=== PATIENT | male | born 2000 | race Hispanic/Latino ===

== ENCOUNTER 2023-09-27 21:59 | Emergency (ER) | payer OTHER ==
[2023-09-27] MEDS ORDERED: ONDANSETRON 4 MG/2 ML VIAL ONE (22:13)
[2023-09-27] MEDS ORDERED: KETOROLAC 30 MG/ML INJ ONE (22:13)
[2023-09-27] MEDS ORDERED: NA CHLORIDE 0.9% 1,000 ML ONE (22:14)
[2023-09-27] MEDS ORDERED: FENTANYL CITR 100 MCG/2 ML ONE (22:14)
--- NOTE | 2023-09-27 22:36 | RAD REPORT ---
EXAM DESCRIPTION: RAD - Tib Fib Left - 09/27/2023 10:25 pm CLINICAL HISTORY: PAIN COMPARISON: <Comparisons> FINDINGS: Mildly displaced trimalleolar fracture is present of the ankle. Moderate surrounding soft tissue swelling. No additional fracture seen.
--- NOTE | 2023-09-27 22:38 | RAD REPORT ---
EXAM DESCRIPTION: RAD - Foot Left 3 View - 09/27/2023 10:26 pm CLINICAL HISTORY: PAIN COMPARISON: <Comparisons> FINDINGS: Trimalleolar fracture of the ankle again seen. Moderate soft tissue swelling. No additiona l foot fracture or dislocation.
--- NOTE | 2023-09-27 23:03 | ER ---
Nurse's Notes [facility] Name: Frankie Aguirre Age: 23 yrs Sex: Male : 2000 Arrival Date: 09/27/2023 Time: 21:59 Bed 20 Private MD: Diagnosis: Displaced trimalleolar fracture of left lower leg, initial encounter for closed fracture;Contusion of unspecified part of head-right periorbital;Paresthesia of skin;Fracture of nasal bones Presentation: 09/26 22:00 Chief complaint: Patient states: Patient presents to the ER with 3 correctional mt4 officers. Patient states left lower foot pain and limping since yesterday due to fall. States pain 7/10, tender to touch, observed swelling and bruising to injured site- interior latera left l foot. Denies PMH, denies any N/V/D. Denies taking any pain meds before arrival. Coronavirus screen: At this time, the client does not indicate any symptoms associated with coronavirus-19. Ebola Screen: No symptoms or risks identified at this time. Initial Sepsis Screen: Does the patient meet any 2 criteria? No. Patient's initial sepsis screen is negative. Does the patient have a suspected source of infection? No. Patient's initial sepsis screen is negative. Risk Assessment: Do you want to hurt yourself or someone else? Patient reports no desire to harm self or others. Note patient observed to have bruising to right eye, patient states "I fell down". Onset of symptoms was September 27, 2023. 22:00 Method Of Arrival: Stretcher mt4 22:00 Acuity: JEROME 3 mt4 Triage Assessment: 22:31 General: Appears in no apparent distress. comfortable, Behavior is cooperative. Pain: mt4 Complains of pain in left foot and left leg Pain does not radiate. Pain currently is 7 out of 10 on a pain scale. Quality of pain is described as aching, throbbing, Pain began gradually, 1 day ago. Is continuous. Neuro: Level of Consciousness is awake, alert, obeys commands, Oriented to person, place, time, situation, Hearing Care Practitioner are Speech is normal, Facial symmetry appears normal. Cardiovascular: Capillary refill < 3 seconds. Respiratory: Airway is patent. GI: Abdomen is non-distended, Abd is soft and non tender. : Denies burning with urination. Musculoskeletal: Capillary refill < 3 seconds, Range of motion: intact in all extremities, Swelling present in left foot Tenderness present in left foot Reports pain in left foot. Injury Description: Bruise sustained to left foot. Historical: - Allergies: 22:31 No Known Allergies; mt4 - Infectious Disease History:: Denies. - Social history:: Smoking status: unknown The patient lives [place] [employer] . - Family history:: not pertinent. - Coronavirus screen:: The patient has NOT traveled to [place] in the past 14 days. - Ebola Screening: : No symptoms or risks identified at this time. Screenin:54 [facility] ED Fall Risk Assessment (Adult) History of falling in the last 3 months, mt4 including since admission Yes- single mechanical fall (1 pt) Confusion or Disorientation No (0 pts) Intoxicated or Sedated No (0 pts) Impaired Gait Yes (1 pt) Mobility Assist Device Used No (0 pt) Altered Elimination No (0 pt) Score/Fall Risk Level 3 or more points = High Risk. Abuse screen: Denies injuries from another. Nutritional screening: No deficits noted. Tuberculosis screening: No symptoms or risk factors identified. Exposure risk/Travel Screening: None identified. Assessment: 22:54 General: Appears in no apparent distress. Behavior is calm, cooperative, appropriate mt4 for age. Pain: Complains of pain in left foot Pain does not radiate. Pain currently is 7 out of 10 on a pain scale. Quality of pain is described as aching, tender, throbbing, Is continuous, Alleviated by medications. Neuro: Level of Consciousness is awake, alert, obeys commands, Oriented to person, place, time, situation, Speech is normal, Facial symmetry appears normal. Cardiovascular: Capillary refill < 3 seconds. Respiratory: Airway is patent. GI: Abdomen is non-distended. :. 09/27 00:30 Reassessment: Nurse to nurse provided over the phone with Christianne from [facility], and mt4 patient updated on transfer. 00:53 Reassessment: Patient is alert, oriented x 3, equal unlabored respirations, skin mt4 warm/dry/pink. General: Appears in no apparent distress. comfortable, Behavior is calm, cooperative, appropriate for age. Pain: Complains of pain in left foot. Neuro: Level of Consciousness is awake, alert, obeys commands, Oriented to person, place, time, situation, Speech is normal, Facial symmetry appears normal. Cardiovascular: Capillary refill < 3 seconds. Respiratory: Airway is patent. Musculoskeletal: Range of motion: pain to left lower extremity Reports. Injury Description: Bruise sustained to face and left foot. Vital Signs: 09/26 22:00 BP 127 / 69; Pulse 88; Resp 16 S; Temp 97.1(O); Pulse Ox 97% on R/A; Pain 7/10; mt4 22:51 BP 127 / 62; Pulse 76; Resp 16 S; Temp 98.1(O); Pulse Ox 96% on R/A; Pain 7/10; mt4 09/27 00:05 Weight 77.11 kg; rv1 00:53 BP 121 / 66; Pulse 72; Resp 16 S; Temp 98.6(O); Pulse Ox 98% on R/A; Pain 5/10; mt4 09/26 22:00 Pain Scale: Adult mt4 22:51 Pain Scale: Adult mt4 00:53 Pain Scale: Adult mt4 [place] Coma Score: 09/26 22:54 Eye Response: spontaneous(4). Motor Response: obeys commands(6). Verbal Response: mt4 oriented(5). Total: 15. 09/27 00:53 Eye Response: spontaneous(4). Motor Response: obeys commands(6). Verbal Response: mt4 oriented(5). Total: 15. Trauma Score (Adult): 09/26 22:54 Eye Response: spontaneous(1); Verbal Response: oriented(1); Motor Response: obeys mt4 commands(2); Systolic BP: > 89 mm Hg(4); Respiratory Rate: 10 to 29 per min(4); [place] Score: 15; Trauma Score: 12 ED Course: 22:01 Patient arrived in ED. vc1 22:01 Michael Mims MD is Attending Physician. nic 22:10 Orlando Sullivan, YEN is Primary Nurse. mt4 22:27 Tib Fib Left XRAY In Process Unspecified. EDMS 22:27 Foot Left 3 View XRAY In Process Unspecified. EDMS 22:31 Triage completed. mt4 22:31 Arm band placed on right wrist. Patient placed on pulse oximetry. EKG completed in mt4 triage. Results shown to MD. 22:45 CT Head C Spine In Process Unspecified. EDMS 22:45 CT Facial Bones W/O Con In Process Unspecified. EDMS 23:00 No apparent distress. Awaiting lab results, Awaiting for x-ray. mt4 23:00 Patient has correct armband on for positive identification. Bed in low position. Call mt4 light in reach. Side rails up X 1. Adult w/ patient. Client placed on continuous cardiac and pulse oximetry monitoring. NIBP monitoring applied. Pulse ox on. Lights dimmed. Patient is placed in psych hold. 23:00 No provider procedures requiring assistance completed. Inserted saline lock: 20 gauge mt4 in right antecubital area, using aseptic technique. Patient maintains SpO2 saturation greater than 95% on room air. 09/27 00:58 Provided Education on: transfer education and splint education . mt4 00:58 Patient transferred, IV remains in place. Patient maintains SpO2 saturation greater mt4 than 95% on room air. left posterior splint applied to left lower extremity. Administered Medications: 09/26 22:53 Drug: Ketorolac IVP 30 mg IVP once Route: IVP; Site: right antecubital; mt4 23:54 Follow up: Response: No adverse reaction mt4 22:53 Drug: fentaNYL (PF) IVP 50 mcg IVP once Route: IVP; Site: right antecubital; mt4 23:53 Follow up: Response: No adverse reaction mt4 22:53 Drug: Ondansetron IVP 4 mg IVP once; over 2 minutes Route: IVP; Site: right antecubital;mt4 23:53 Follow up: Response: No adverse reaction mt4 22:54 Drug: NS 0.9% IV 1000 ml IV at 1 bolus Per protocol; 1000 mL bolus Route: IV; Rate: 1 mt4 bolus; Site: right antecubital; 23:54 Follow up: Response: No adverse reaction; IV Status: Completed infusion; IV Intake: mt4 1000ml Medication: 22:54 VIS not applicable for this client. mt4 Intake: 23:54 IV: 1000ml; Total: 1000ml. mt4 Outcome: 23:02 ER care complete, transfer ordered by MD. lucero 09/27 00:58 Transferred by ground EMS to [facility], Transfer form mt4 completed. Condition: stable Discharge instructions given to family, Instructed on transfer education, splint education Demonstrated understanding of instructions, splint care, 01:16 Patient left the ED. mt4 Signatures: Dispatcher [employer] Michael Lin MD MD cha Calcote, Vanessa, RN RN 1 Patsy Leo 1 Orlando Sullivan, RN RN mt4
--- NOTE | 2023-09-27 23:03 | EDPHYS ---
Physician Documentation [facility] Name: Frankie Aguirre Age: 23 yrs Sex: Male : 2000 Arrival Date: 09/27/2023 Time: 21:59 Bed 20 Private MD: ED Physician Michael Mims HPI: 09/26 22:50 This 23 yrs old Male presents to ER via Stretcher with complaints of left nic ankle and face trauma sp fall. 22:50 The patient presents with decreased range of motion, pain, swelling, tenderness. The nic complaints affect the lateral aspect of left calf, left lateral ankle, left Achilles, medial aspect of left calf, left [place] and anterior aspect of left ankle. Context: resulted from a direct blow, the patient falling, the patient is not able to bear weight. Modifying factors: The symptoms are alleviated by elevating leg, remaining still, the symptoms are aggravated by movement, weight bearing. Associated signs and symptoms: The patient has no apparent associated signs or symptoms. The patient presents with decreased range of motion, pain, swelling, tenderness. The complaints affect the left ankle, left lateral ankle, left heel, left medial ankle and anterior aspect of left ankle. Context: The problem was sustained prision. Severity of symptoms: At their worst the symptoms were moderate, in the emergency department the symptoms are unchanged. Historical: - Allergies: 22:31 No Known Allergies; mt4 - Infectious Disease History:: Denies. - Social history:: Smoking status: unknown The patient lives [place] [employer] . - Family history:: not pertinent. - Coronavirus screen:: The patient has NOT traveled to [place] in the past 14 days. - Ebola Screening: : No symptoms or risks identified at this time. ROS: 22:50 Constitutional: Negative for fever, chills, and weight loss, Eyes: Negative for injury, nic pain, redness, and discharge, Neck: Negative for injury, pain, and swelling, Cardiovascular: Negative for chest pain, palpitations, and edema, Respiratory: Negative for shortness of breath, cough, wheezing, and pleuritic chest pain, Abdomen/GI: Negative for abdominal pain, nausea, vomiting, diarrhea, and constipation, Back: Negative for injury and pain, : Negative for injury, bleeding, discharge, and swelling, Skin: Negative for injury, rash, and discoloration, Neuro: Negative for headache, weakness, numbness, tingling, and seizure, Psych: Negative for depression, anxiety, suicide ideation, homicidal ideation, and hallucinations, Allergy/Immunology: Negative for hives, rash, and allergies, Endocrine: Negative for neck swelling, polydipsia, polyuria, polyphagia, and marked weight changes, Hematologic/Lymphatic: Negative for swollen nodes, abnormal bleeding, and unusual bruising, 22:50 ENT: Positive for right eye ecchymosis, Exam: 22:50 Constitutional: This is a well developed, well nourished patient who is awake, alert, nic and in no acute distress. Eyes: Pupils equal round and reactive to light, extra-ocular motions intact. Lids and lashes normal. Conjunctiva and sclera are non-icteric and not injected. Cornea within normal limits. Periorbital areas with no swelling, redness, or edema. ENT: Nares patent. No nasal discharge, no septal abnormalities noted. Tympanic membranes are normal and external auditory canals are clear. Oropharynx with no redness, swelling, or masses, exudates, or evidence of obstruction, uvula midline. Mucous membranes moist. Neck: Trachea midline, no thyromegaly or masses palpated, and no cervical lymphadenopathy. Supple, full range of motion without nuchal rigidity, or vertebral point tenderness. No Meningismus. Chest/axilla: Normal chest wall appearance and motion. Nontender with no deformity. No lesions are appreciated. Cardiovascular: Regular rate and rhythm with a normal S1 and S2. No gallops, murmurs, or rubs. Normal PMI, no JVD. No pulse deficits. Respiratory: Lungs have equal breath sounds bilaterally, clear to auscultation and percussion. No rales, rhonchi or wheezes noted. No increased work of breathing, no retractions or nasal flaring. Abdomen/GI: Soft, non-tender, with normal bowel sounds. No distension or tympany. No guarding or rebound. No evidence of tenderness throughout. Back: No spinal tenderness. No costovertebral tenderness. Full range of motion. Male : Normal genitalia with no discharge or lesions. Skin: Warm, dry with normal turgor. Normal color with no rashes, no lesions, and no evidence of cellulitis. Neuro: Awake and alert, GCS 15, oriented to person, place, time, and situation. Cranial nerves II-XII grossly intact. Motor strength 5/5 in all extremities. Sensory grossly intact. Cerebellar exam normal. Normal gait. Psych: Awake, alert, with orientation to person, place and time. Behavior, mood, and affect are within normal limits. 22:50 Head/face: Noted is swelling, tenderness, that is mild, of the right eye, 22:50 Musculoskeletal/extremity: Extremities: grossly normal except: noted in the left lateral ankle, left medial ankle and anterior aspect of left ankle: decreased ROM, pain, swelling, tenderness, Vital Signs: 22:00 BP 127 / 69; Pulse 88; Resp 16 S; Temp 97.1(O); Pulse Ox 97% on R/A; Pain 7/10; mt4 22:51 BP 127 / 62; Pulse 76; Resp 16 S; Temp 98.1(O); Pulse Ox 96% on R/A; Pain 7/10; mt4 09/27 00:05 Weight 77.11 kg; rv1 00:53 BP 121 / 66; Pulse 72; Resp 16 S; Temp 98.6(O); Pulse Ox 98% on R/A; Pain 5/10; mt4 09/26 22:00 Pain Scale: Adult mt4 22:51 Pain Scale: Adult mt4 00:53 Pain Scale: Adult mt4 [place] Coma Score: 09/26 22:54 Eye Response: spontaneous(4). Motor Response: obeys commands(6). Verbal Response: mt4 oriented(5). Total: 15. 09/27 00:53 Eye Response: spontaneous(4). Motor Response: obeys commands(6). Verbal Response: mt4 oriented(5). Total: 15. Trauma Score (Adult): 09/26 22:54 Eye Response: spontaneous(1); Verbal Response: oriented(1); Motor Response: obeys mt4 commands(2); Systolic BP: > 89 mm Hg(4); Respiratory Rate: 10 to 29 per min(4); Sam Score: 15; Trauma Score: 12 MDM: 22:05 Patient medically screened. [facility] 22:57 Differential diagnosis: dislocation, closed fracture, contusion, tendonitis, sprain. [facility] Data reviewed: vital signs, nurses notes, lab test result(s), radiologic studies, plain films. Consideration of Admission/Observation Escalation of care including admission/observation considered. I considered the following discharge prescriptions or medication management in the emergency department Medications were administered in the Emergency Department. See MAR. Independent interpretation of the following test(s) in the Emergency Department X-Ray: My interpretation is left foot ankle, tib fib. CT Scan: My interpretation is ct head , face c spine. Test considered but Not performed: CT: no ct ankle. Historians other than the Patient: guards, pt. Care significantly affected by the following chronic conditions: none. Counseling: I had a detailed discussion with the patient and/or guardian regarding the historical points, exam findings, and any diagnostic results supporting the discharge/admit diagnosis, lab results, radiology results, the need to transfer to another facility, for higher level of care, [facility] does not immediately have the required specialist. 09/26 22:08 Order name: CBC with Diff; Complete Time: 01:04 [facility] 09/26 22:08 Order name: Comprehensive Metabolic Panel; Complete Time: 01:04 [facility] 09/26 22:08 Order name: Tib Fib Left XRAY; Complete Time: 22:48 [facility] 09/26 22:08 Order name: Foot Left 3 View XRAY; Complete Time: 22:48 [facility] 09/26 22:08 Order name: CT Head C Spine [facility] 09/26 22:08 Order name: CT Facial Bones W/O Con [facility] 09/26 22:08 Order name: Ice pack; Complete Time: 22:21 [facility] 09/26 22:48 Order name: Splint - Ankle: Posterior; Complete Time: 01:17 [facility] Administered Medications: 22:53 Drug: Ketorolac IVP 30 mg IVP once Route: IVP; Site: right antecubital; mt4 23:54 Follow up: Response: No adverse reaction mt4 22:53 Drug: fentaNYL (PF) IVP 50 mcg IVP once Route: IVP; Site: right antecubital; mt4 23:53 Follow up: Response: No adverse reaction mt4 22:53 Drug: Ondansetron IVP 4 mg IVP once; over 2 minutes Route: IVP; Site: right antecubital;mt4 23:53 Follow up: Response: No adverse reaction mt4 22:54 Drug: NS 0.9% IV 1000 ml IV at 1 bolus Per protocol; 1000 mL bolus Route: IV; Rate: 1 mt4 bolus; Site: right antecubital; 23:54 Follow up: Response: No adverse reaction; IV Status: Completed infusion; IV Intake: mt4 1000ml Disposition Summary: 09/27/23 23:02 Transfer Ordered Notes: Transfer Location: [facility] nic Reason: Higher level of care nic Condition: Stable nic Problem: new nic Symptoms: have improved nic Accepting Physician: to [facility](09/28/23 01:16) mt4 Diagnosis - Displaced trimalleolar fracture of left lower leg, initial encounter for closed nic fracture - Contusion of unspecified part of head - right periorbital nic - Paresthesia of skin nic - Fracture of nasal bones nic Forms: - Medication Reconciliation Form nic - SBAR form nic Signatures: Dispatcher [employer] EDMichael Sánchez MD MD cha Tath, Molinec RN RN mt4 Corrections: (The following items were deleted from the chart) 22:08 22:08 CBC+H.LAB.BRZ ordered. EDMS EDMS 22:08 22:08 COMPREHENSIVE METABOLIC PANEL+C.LAB.BRZ ordered. EDMS EDMS 22:08 22:08 Tib Fib Left+RAD.RAD.BRZ ordered. EDMS EDMS 22:08 22:08 Ankle Left 3 View+RAD.RAD.BRZ ordered. EDMS EDMS 22:09 22:09 Foot Left 3 View+RAD.RAD.BRZ ordered. EDMS EDMS 22:09 22:09 Head C Spine MPR Wo Con+CT.RAD.BRZ ordered. EDMS EDMS 22: 22:09 Facial Bones W/ MPR+CT.RAD.BRZ ordered. EDMS EDMS 09/27 00:36 09/26 23:02 to [facility] nic nic 09/27 01:16 00:36 to [facility] nic mt4
[2023-09-27 23:12] LABS: Albumin 4.3 g/dL (3.4-5.0); Albumin/Globulin Ratio 1.3 (1.1-1.8); Anion Gap 9.2 mEq/L (5.0-15.0); Bilirubin Total 0.8 mg/dL (0.2-1.0); Globulin 3.4 g/dL (2.3-3.5); Potassium 4.2 mEq/L (3.5-5.1); Protein, Total 7.7 g/dL (6.4-8.2)
[2023-09-27 23:20] LABS: Absolute Lymphocytes (CBC) 1.5 K/uL (0.7-4.9); Absolute Neutrophil 10.5 K/uL (1.8-8.0); Basophils % 0.3 % (0-1.3); Eosinophils % 0.1 % (0-4.4); Hematocrit 39.5 % (39.6-49.0); Hemoglobin 12.8 g/dL (13.6-17.9); Lymphocytes % 11.8 % (15.3-44.8); MCH 30.9 pg (27.0-35.0); MCHC 32.5 g/dL (32.0-36.0); MCV 95.2 fL (80-100); MPV 8.9 fL (7.6-11.3); Monocytes % 7.6 % (3.3-12.3); Neutrophils % 80.2 % (41.7-73.7); Platelets 223 thou/uL (152-406); RBC Red Blood Cell Count 4.15 M/uL (4.33-5.43); Red Cell Distribution Width 12.8 % (12.1-15.2)
[2023-09-28 01:38] VITALS: BP 121/66; TEMP 98.6; O2SAT 98
--- NOTE | 2023-09-28 10:10 | RAD REPORT ---
EXAM DESCRIPTION: CT - Facial Bones W/ Mpr - 09/28/2023 6:52 am CLINICAL HISTORY: The patient is 23 years old and is Male; PAIN TECHNIQUE: Axial computed tomography images of the face without intravenous contrast. Sagittal and coronal reformatted images were created and reviewed. This CT exam was performed using one or more of the following dose reduction techniques: automated exposure control, adjustment of the mA and/o r kV according to patient size, and/or use of iterative reconstruction technique. COMPARISON: No relevant prior studies available. FINDINGS: BONES/JOINTS: Left nasal bone fracture is present. The orbital floors and cordova are in tact. The zygomatic arches and pterygoid plates are intact. The maxilla and mandible are intact. SOFT TISSUES: Right facial soft tissue swelling is present. ORBITS: The globes, extraocular muscles, and optic nerve complexes are within normal limits. SINUSES: A left maxillary sinus mucus retention cyst is noted. The remaining paranasal sinuses ar e clear. No air-fluid levels. IMPRESSION: Left nasal bone fracture. Electronically signed by: Orquidea Zazueta MD 09/27/2023 11:35 PM CDT Due to temporary technical issues with the PACS/Fluency reporting system, reports are being signed by the in house radiologist without review as a courtesy to ensure prompt reporting. The interpreting r adiologist is fully responsible for the content of the report.
--- NOTE | 2023-09-28 10:16 | RAD REPORT ---
EXAM DESCRIPTION: CT - Head C Spine Mpr Wo Con - 09/28/2023 6:52 am CLINICAL HISTORY: The patient is 23 years old and is Male; PAIN TECHNIQUE: Axial computed tomography images of the head/brain and cervical spine without intravenous contrast. Sagittal and coronal reformatted images were created and reviewed. This CT exam was pe rformed using one or more of the following dose reduction techniques: automated exposure control, a djustment of the mA and/or kV according to patient size, and/or use of iterative reconstruction techn ique. COMPARISON: No relevant prior studies available. FINDINGS: BRAIN: Unremarkable. No hemorrhage. No significant white matter disease. No edema. VENTRICLES: Unremarkable. No ventriculomegaly. SKULL: No acute fracture. SINUSES: Unremarkable as visualized. No acute sinusitis. MASTOID AIR CELLS: Unremarkable as visualized. No mastoid effusion. VERTEBRAE: Straightening of the normal cervical curvature is present. The vertebral body height s and alignment are maintained. There is no acute fracture. DISCS/SPINAL CANAL/NEURAL FORAMINA: The intervertebral disc spaces are maintained. No spinal juan l stenosis. SOFT TISSUES: The soft tissues are normal. LUNG APICES: Unremarkable as visualized. IMPRESSION: 1. No acute intracranial findings. 2. Straightening of the normal cervical curvature is present. Findings may be secondary to patien t position versus muscle spasm. Electronically signed by: Orquidea Zazueta MD 09/27/2023 11:31 PM CDT Due to temporary technical issues with the PACS/Fluency reporting system, reports are being signed by the in house radiologist without review as a courtesy to ensure prompt reporting. The interpreting r adiologist is fully responsible for the content of the report.
== END 2023-09-28 01:16 | disposition short-term general hospital (02) ==
LOC: ER 21:59
DX: S82.852A Displaced trimalleolar fracture of left lower leg, initial encounter for closed fracture (principal); S02.2XXA Fracture of nasal bones, initial encounter for closed fracture; S05.11XA Contusion of eyeball and orbital tissues, right eye, initial encounter; S00.93XA Contusion of unspecified part of head, initial encounter; W19.XXXA Unspecified fall, initial encounter; Y92.149 Unspecified place in prison as the place of occurrence of the external cause; R20.2 Paresthesia of skin
CPT/HCPCS: 96361; 85025; 36415; 80053; 70450; 72125; 70486; 76377; 73630; 73590; 96375; 96374; 99285; J3010; J2405; J7030